=== PATIENT | male | born 1945 | race Caucasian/White ===

== ENCOUNTER → 2018-08-13 | Outpatient (CLI) | payer MEDICARE ==
--- NOTE | 2018-08-13 13:28 | CONS ---
CONSULTATION DATE OF SERVICE: 08/13/2018. This 72-year-old gentleman has been evaluated in the sleep center for possible obstructive sleep apnea-hypopnea syndrome. HISTORY OF PRESENT ILLNESS/SLEEP-WAKE EVALUATION: Patient had sleep study about 20 years ago, which was negative. Since that time according to the patient's family, he continued to snore and has episodes of stopped breathing during the sleep. His sleep schedule usually from 10 to 11 p.m. until 7 to 7:30 a.m. No problem with falling asleep. No TV in bedroom. He wakes up from sleep around 4 times to go to the bathroom. During the day, he sometimes feel sleepy. [place] Sleepiness Scale today is 12. During the previous visit to his physician, it was 12. PAST MEDICAL HISTORY: Positive for prostate CA treated with proton therapy, hypothyroidism. PAST SURGICAL HISTORY: Knee surgery, surgery for nasal septum deviation, tonsillectomy. MEDICATIONS: Aspirin, tamsulosin, levothyroxine. SOCIAL HISTORY: Negative for smoking. Alcohol consumption rarely. FAMILY HISTORY: Hypertension, stroke, arthritis, snoring, cancer, thyroid problems, restless legs. REVIEW OF SYSTEMS: Multiple awakenings from sleep, sometimes swelling of the legs, sleepiness. PHYSICAL EXAMINATION: During physical exam, a gentleman without distress. VITAL SIGNS: BP 134/75, HR 64, RR 16, height 5 feet and 10 inches, weight 207.5, temperature 97.7, oxygen saturation room air 99% HEENT: PERRLA, EOMI. Oropharynx moderately to extremely low position of soft palate. NECK: 16-1/2 inches in circumference. LUNGS: Clear to percussion and to auscultation. Good air exchange. No wheezing or rhonchi. HEART: S1, S2 regular. No murmurs, gallops, or rubs. ABDOMEN: Soft and nontender. Bowel sounds are present. No organomegaly appreciated. EXTREMITIES: Up to 1+ ankle edema. KNOCK UP ASSEMBLER: Awake, alert, and oriented X3. Cranial nerves 2 to 7 intact. There is no fasciculation or atrophy. noted. No focal deficits observed. IMPRESSION: 1. Snoring, witnessed episodes of stopped breathing during sleep, low position of soft palate, multiple awakenings from sleep with nocturia, excessive daytime sleepiness, obstructive sleep apnea-hypopnea syndrome. 2. Obesity. 3. History of prostate cancer treated by proton therapy. 4. Status post tonsillectomy. 5. Status post surgery for nasal septum deviation after nasal fracture. 6. Hypothyroidism. 7. Status post knee surgery. PLAN: 1. Polysomnography for evaluation of patient's breathing during sleep. 2. CPAP/BiPAP titration if sleep study confirms obstructive sleep apnea-hypopnea syndrome. 3. Preferable position during sleep on the side. 4. No driving if patient feels any sleepiness. 5. I will see patient for follow up visit to explain results of testing and following plan. Thank you very much for referring this patient for consultation. Sincerely, Sohan Morgan MD, PhD, FAASM Diplomat of [employer] Specialties Spanish Board of Internal Medicine Development Technical Lead of [facility] [place] MMODL / IJN: [id number] /
== END ==
LOC: SLEEP 11:30
PROVIDERS: ATTEND Internal Medicine
DX: G47.33 Obstructive sleep apnea (adult) (pediatric) (principal); E66.9 Obesity, unspecified; E03.9 Hypothyroidism, unspecified; Z85.46 Personal history of malignant neoplasm of prostate; Z90.89 Acquired absence of other organs; Z98.890 Other specified postprocedural states; Z79.82 Long term (current) use of aspirin; Z79.899 Other long term (current) drug therapy
CPT/HCPCS: 99211

== ENCOUNTER → 2018-08-20 | Outpatient (CLI) | payer MEDICARE ==
[2018-08-20 14:39] LABS: Calcium 9.4 mg/dL (8.4-10.2); Potassium 4.4 mmol/L (3.5-5.1)
[2018-08-20 14:54] LABS: T4, Free (Free Thyroxine) 1.02 ng/dL (0.78-2.19)
[2018-08-20 15:07] LABS: Prostate Specific Antigen 0.61 ng/mL (0.00-4.00)
== END | disposition home or self-care (01) ==
LOC: LABWHC1 12:43
PROVIDERS: ATTEND Internal Medicine
DX: C61 Malignant neoplasm of prostate (principal); E06.3 Autoimmune thyroiditis; E55.9 Vitamin D deficiency, unspecified
CPT/HCPCS: 36415; 80048; 82306; 84153; 84403; 84439; 84443

== ENCOUNTER → 2019-05-20 | Outpatient (CLI) | payer MEDICARE ==
--- NOTE | 2019-05-20 12:21 | SFUN ---
SLEEP CENTER FOLLOW UP NOTE DATE OF SERVICE: 05/20/2019 A 73-year-old gentleman has been followed in sleep center for treatment of obstructive sleep apnea-hypopnea syndrome and that is actually his first visit after he received CPAP unit. I discussed results of sleep studies with the patient in detail. Diagnostic sleep study showed severe sleep apnea, then he had CPAP titration and subsequently received CPAP unit. The patient is able to use CPAP equipment every night and sometimes he experiencing dryness in his mouth using a chinstrap. [place] Sleepiness Scale today is 4, which is normal. I checked his CPAP unit. Usage is 28 out of 30 nights and 22 out of 30 nights for more than 4 hours with average usage 5.4 hours. Range of the pressure 8 to 12 after medical regimen and average pressure in the machine is 11.7, which is close to maximal level. Leak is 25 L/minute. Apnea-hypopnea index reading for the last month 6.1; for the last 3 months, 6.0; for the last 6 months, 6.6. MEDICATIONS: Tamsulosin, levothyroxine, aspirin. PHYSICAL EXAMINATION: During physical examination, patient in no distress. VITAL SIGNS: BP 119/64, HR 50, RR 16, weight 203, temp 97.5, oxygen saturation at room air 99%. HEENT: PERRLA, EOMI. Oropharynx extremely low position of soft palate. Mallampati 4, NECK: Supple, no JVD. Thyroid is not palpable. LUNGS: Clear to percussion and to auscultation. Good air exchange. No wheezing or rhonchi. HEART: S1, S2 regular. No murmurs, gallops, or rubs. ABDOMEN: Soft and nontender. Bowel sounds are present. No organomegaly appreciated. EXTREMITIES: No clubbing or cyanosis. INSTRUCTIONAL AIDE: Awake, alert, and oriented X3. Cranial nerves 2 to 7 intact. There is no fasciculation or atrophy. noted. No focal deficits observed. IMPRESSION: 1. Severe obstructive sleep apnea-hypopnea syndrome. The patient demonstrated good compliance with treatment benefitting from treatment. 2. Severe periodic limb movements have been documented. 3. History of prostate carcinoma, status post proton therapy. 4. Status post tonsillectomy. 5. Status post surgery for nasal septum deviation. 6. Hypothyroidism. 7. Status post right knee surgery. PLAN: 1. The patient will continue to use CPAP equipment every night for the whole night. 2. I will increase maximal pressure on 1 cm of water to 13. 3. Sleep hygiene with regular time in bed for at least 8 hours. 4. Precautions related to driving. No driving if feel any sleepiness. 5. I will explain patient how to adjust humidity in his CPAP unit. Thank you very much for allowing me to participate in management of your patient. Sincerely, Sohan Morgan MD, PhD, FAASM Diplomat of [employer] Board [employer] Specialties [place] Board of Internal Medicine Machinist Instructor of [facility] [place] MMODL / IJN: [id number] /
== END | disposition home or self-care (01) ==
LOC: SLEEP 10:29
PROVIDERS: ATTEND Internal Medicine
DX: G47.33 Obstructive sleep apnea (adult) (pediatric) (principal); G47.61 Periodic limb movement disorder; E03.9 Hypothyroidism, unspecified; Z85.46 Personal history of malignant neoplasm of prostate; Z99.89 Dependence on other enabling machines and devices; Z90.09 Acquired absence of other part of head and neck; Z98.890 Other specified postprocedural states

== ENCOUNTER → 2019-06-21 | Outpatient (CLI) | payer MEDICARE | END | disposition home or self-care (01) | LOC: LABWHC1 08:16 | PROVIDERS: ATTEND Radiology Radiation Oncology | DX: C61 Malignant neoplasm of prostate (principal) | CPT/HCPCS: 36415; 84153 ==

== ENCOUNTER → 2019-09-18 | Outpatient (CLI) | payer MEDICARE | END | disposition home or self-care (01) | LOC: LABWHC1 11:11 | PROVIDERS: ATTEND Internal Medicine | DX: E55.9 Vitamin D deficiency, unspecified (principal); E06.3 Autoimmune thyroiditis | CPT/HCPCS: 36415; 82306; 84439; 84443 ==

== ENCOUNTER → 2021-07-05 | Outpatient (CLI) | payer MEDICARE ==
--- NOTE | 2021-07-05 11:17 | SFUN ---
SLEEP CENTER FOLLOW UP NOTE DATE OF SERVICE: 07/05/2021 This 75-year-old gentleman has been followed in Sleep Center for treatment of obstructive sleep apnea-hypopnea syndrome. Previous visit was in 2019. The patient did not come for a follow-up visit after that because of the situation with Covid, and he was also [place] of [place]. He continues to use his equipment every night. He changed his mask to DreamWear [id number] nasal mask, and he likes this mask, feels comfortable with that. During previous visit, because his apnea-hypopnea index was more than 6, I changed the pressure in his machine and slightly increased it. [place] Sleepiness Scale today is 3. I checked his CPAP unit. Range of the pressure is 8-13, average pressure 12.1, usage 29/30 nights for more than 4 hours, average 6.1 hours per night. Leak is slightly increased at 36 L/minute. Apnea-hypopnea index is 4.2, which is in normal range. MEDICATIONS: Levothyroxine 75 mcg once a day. PHYSICAL EXAMINATION: GENERAL: Pleasant patient in no distress. VITAL SIGNS: BP 143/77, HR 52, RR 15, height 5 feet 10 inches, weight 195, body mass index 27.9, temperature 96.8, oxygen saturation at room air 99%. HEENT: PERRLA, EOMI, evaluation of oropharynx showed tongue protrudes midline. Extremely low position of soft palate, Mallampati IV. NECK: Supple, no JVD. Thyroid is not palpable. LUNGS: Clear to percussion and to auscultation. Good air exchange. No wheezing or rhonchi. HEART: S1, S2 regular. No murmurs, gallops, or rubs. ABDOMEN: Soft and nontender. Bowel sounds are present. No organomegaly appreciated. EXTREMITIES: No clubbing or cyanosis. MARKETING DATABASE CONSULTANT: Awake, alert, and oriented X3. Cranial nerves 2 to 7 intact. There is no fasciculation or atrophy. noted. No focal deficits observed. IMPRESSION: 1. Severe obstructive sleep apnea-hypopnea syndrome. Normal apnea-hypopnea index after pressure was increased during the previous visit. The patient demonstrated great compliance with treatment, benefitting from treatment. 2. History of severe periodic limb movements. No complaints of limb movements at the present time. 3. History of prostate carcinoma, status post proton therapy. 4. Status post tonsillectomy. 5. Status post surgery for nasal septum deviation. 6. Hypothyroidism. 7. Status post right knee surgery. PLAN: 1. Patient will continue to use PAP equipment every night for the whole night. 2. Sleep hygiene with regular time in bed for at least 7-1/2 to 8 hours. 3. Precautions related to driving. No driving if feeling sleepiness. 4. I will maintain all necessary prescription for PAP supplies including mask, tube, filters. 5. Watching weight. 6. Follow-up visit in 6 months or earlier if patient has any problems. Thank you very much for allowing me to participate in the management of your patient. Sincerely, Sohan Morgan MD, PhD, FAASM Diplomat of [employer] Board [employer] Specialties Sleep Medicine Board of [employer] Board of Internal Medicine Data Management Engineer of [facility] [place] MMABELARDO / CONCEPCION: [id number] /
== END ==
LOC: SLEEP 10:11
PROVIDERS: ATTEND Internal Medicine
DX: G47.33 Obstructive sleep apnea (adult) (pediatric) (principal); Z85.46 Personal history of malignant neoplasm of prostate; Z90.89 Acquired absence of other organs; E03.9 Hypothyroidism, unspecified; Z47.1 Aftercare following joint replacement surgery

== ENCOUNTER → 2022-01-03 | Outpatient (CLI) | payer MEDICARE ==
--- NOTE | 2022-01-03 17:32 | SFUN ---
SLEEP CENTER FOLLOW UP NOTE TELEHEALTH APPOINTMENT: DATE OF SERVICE: 01/03/2022 This 76-year-old gentleman has been followed in Sleep Center for treatment of obstructive sleep apnea-hypopnea syndrome. Currently the patient is in another state; that is why this appointment was done as a telehealth appointment. The patient continues to use his CPAP equipment every night for the whole night. No snoring with the machine. Getting his supplies on time. He wants to try possibly a full-face mask instead of just a nasal mask. I checked the reading from his CPAP unit. The patient is using it 100% of nights and 22/30 nights for more than 4 hours, average usage 5 hours 9 minutes. Range of the pressure is 8 to 13 with 95% of the pressure 11.5 cm of water. Leak on average is 33.9, which is slightly increased. Apnea-hypopnea index is 1.5, which is absolutely perfect. Patient is sometimes using a chinstrap. MEDICATIONS: Levothyroxine 75 mcg once a day. IMPRESSION: 1. Severe obstructive sleep apnea-hypopnea syndrome. Patient demonstrated great compliance with treatment. Normal respiration on CPAP. 2. History of severe periodic limb movements. No significant complaints about leg movements at the present time. 3. History of prostate carcinoma, status post proton therapy. 4. Status post tonsillectomy. 5. Hypothyroidism. 6. Status post surgery for nasal septum deviation. 7. Status post right knee surgery. PLAN: 1. Prescription for chinstrap and for mask of choice, full-face mask, as is the patient's preference now. 2. Patient will continue to use PAP equipment every night for the whole night. 3. Sleep hygiene with regular time in bed for at least 7-1/2 to 8 hours. 4. Precautions related to driving. No driving if feeling sleepiness. 5. I will maintain all necessary prescription for PAP supplies including mask, tube, filters. 6. Watching weight. 7. Follow-up visit in 6 months or earlier if patient has any problems. Sincerely, Sohan Morgan MD, PhD, FAASM Diplomat of [employer] Board [employer] Specialties Sleep Medicine Board of [place] Board of Internal Medicine Break Off Worker of [facility] [place] MMODL / IJN: [id number] /
== END | disposition home or self-care (01) ==
LOC: SLEEP 17:11
PROVIDERS: ATTEND Internal Medicine
DX: G47.33 Obstructive sleep apnea (adult) (pediatric) (principal); E03.9 Hypothyroidism, unspecified; Z85.46 Personal history of malignant neoplasm of prostate; Z90.49 Acquired absence of other specified parts of digestive tract; Z98.890 Other specified postprocedural states

== ENCOUNTER → 2022-07-18 | Outpatient (CLI) | payer MEDICARE ==
--- NOTE | 2022-07-18 11:04 | P.PN ---
Subjective DATE: 07/18/2022 FOLLOW UP VISIT. Patient with obstructive sleep apnea hypopnea syndrome return to sleep center for follow-up visit. Information from previous visit have been reviewed. Patient is using PAP equipment every night for the whole night, getting PAP supplies in time. The patient sometimes feels dryness in his mouth. She is using nasal pillow mask, but possibly sometimes opening his mouth. [place] sleepiness scale is 4. I checked information from PAP unit. PAP unit pressure 8-13 cm H2O. Usage is 90 % for more then 4 hours, average 6 hours per night. Leak is 36 l/m, which is in increased range. Apnea Hypopnea Index is 2.3, which is normal. MEDICATIONS:1. Levothyroxine 75 g once a day During physical exam: GENERAL: A pleasant patient without any distress. VITAL SIGNS: BP 133/75, HR 48, RR 16, weight 189, height 5 foot 10 inches, body mass index 26.9, temperature 97.9, oxygen saturation at room air 97 % . HEENT: PERRLA, EOMI.low position of soft palate. NECK: Supple. No JVD. LUNGS: Clear to percussion and to auscultation. Good air exchange. No wheezing or rhonchi. HEART: S1, S2 regular. ABDOMEN: Soft and nontender.[] EXTREMITIES: No clubbing or cyanosis. BUILDING CONSTRUCTION SUPERINTENDENT: Awake, alert, and oriented x3. No focal deficit. Impressions: 1. Obstructive sleep apnea-hypopnea syndrome. Patient demonstrated great compliance with treatment, benefiting from treatment. He probably open his mouth while using nasal pillow mask. 2. Hypothyroidism. 3. History of severe periodic limb movements no complaints of leg movements at night. 4. History of prostate CA status post proton therapy. 5. Status post tonsillectomy. 6. Status post surgery for nasal septum deviation. 7. Status post right knee surgery. Plan: 1. Continue using PAP equipment every night for the whole night. I teach patient how to adjust level of humidity in his CPAP unit. 2. To change air filter at least 1-2 times per month. 3. PAP unit should stay lower then position of the head. 4. Advised patient to remove all remaining water from humidifier canister daily and make it dry after each usage. Refill canister with fresh distilled water before each usage. 5. Sleep hygiene with regular time in bed for at least 8 hours. 6. Precautions related to driving. No driving if feel any sleepiness. 7. I will maintain prescription for PAP supplies including mask, tube, filters. 8. Follow up visit in 6 months or earlier if patient has any problems. 9. Watching weight. Thank you very much for allowing me to participate in the management of your patient. Sohan Morgan MD, PhD, FAASM. Diplomat of [employer] Board of Sleep Medicine, Sleep Medicine Board by [employer] Board of Internal Medicine Concentrator Operator of [facility] [place]
== END | disposition home or self-care (01) ==
LOC: SLEEP 10:10
PROVIDERS: ATTEND Internal Medicine
DX: G47.33 Obstructive sleep apnea (adult) (pediatric) (principal); E03.9 Hypothyroidism, unspecified; Z85.46 Personal history of malignant neoplasm of prostate; Z98.890 Other specified postprocedural states
CPT/HCPCS: 99212

== ENCOUNTER 2023-05-21 06:27 | Day surgery (SDC) | payer MEDICARE ==
[2023-05-16 11:33] VITALS: BMI 27.8
[~2023-05-21 06:27] MED LIST: LACTATED RINGERS 1,000 ML IV SCH; LIDOCAINE 1% (10MG/ML) FOR IV START INTRADERMA PRN
[2023-05-21 06:41] VITALS: RESP 16; TEMP 97
[2023-05-21] MEDS ORDERED: LIDOCAINE 2% INJ 20 MG/ML (2 ML VIAL) ONE (07:28)
[2023-05-21] MEDS ORDERED: PROPOFOL 10 MG/ML 20 ML VIAL IV ONE (07:28)
--- NOTE | 2023-05-21 08:28 | P.PCN ---
Date of Procedure: 05/21/23 Procedure(s) Performed: Brief history: Patient is a pleasant 77-year-old white male scheduled for an elective upper endoscopy as well as colonoscopy as a part of evaluation of Iron deficiency anemia. Procedure performed: Esophagogastroduodenoscopy with biopsy Colonoscopy with argon plasma coagulation Preoperative diagnosis: Iron deficiency anemia Anest[place]: [facility] Procedure: After informed consent was obtained from the patient was brought into the endoscopy unit and IV sedation was administered by anesthesia under continuous monitoring. Initially upper endoscopy was done. The Olympus GF 160 video endoscope was inserted inserted into the mouth and esophagus intubated without any difficulty and was gradually advanced into the stomach and duodenum and carefully examined. The bulb and second part of the duodenum appeared normal. Biopsies from the duodenum to rule out celiac disease. The scope was then withdrawn into the stomach adequately insufflated with air and upon careful examination the antrum had mild antral gastritis and biopsies were done from this area. Mucosa of the body, cardia and fundus appeared normal. The scope was then withdrawn into the esophagus. The GE junction was located at 40 cm to the incisors. It appeared regular with no erythema erosions or ulcerations. Rest of the esophagus appeared normal. Patient tolerated the procedure well. At this time the patient continued to remain sedation. Initial digital rectal examination was normal. Olympus CF 160 video colonoscope was then inserted into the rectum and gradually advanced to the cecum without any difficulty. Careful examination was performed as the scope was gradually being withdrawn. The prep was excellent. The cecum, ascending colon, transverse colon, descending colon, sigmoid colon and rectum appeared normal. In the distal rectum there were scattered telangiectasias noted consistent with radiation proctitis and argon plasma coag ablation was performed with good hemostasis Retroflexion was performed in the rectum and no lesions were noted. Patient tolerated the procedure well. Impression: 1. Upper endoscopy revealed mild antral gastritis but no evidence of esophagitis or peptic ulcer disease. 2. 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 Recommendations: Findings of this examination were discussed with the patient as well his family. He advised to follow with the biopsy results. Continue with iron supplements and monitor CBC periodically.
[2023-05-21 09:04] VITALS: BP 132/75; PULSE 43
== END 2023-05-21 09:06 | disposition home or self-care (01) ==
LOC: ORWHC2ENDO 06:27
PROVIDERS: ATTEND Internal Medicine Gastroenterology
DX: K62.7 Radiation proctitis (principal); K29.50 Unspecified chronic gastritis without bleeding; K31.89 Other diseases of stomach and duodenum; D50.9 Iron deficiency anemia, unspecified
CPT/HCPCS: 88305; 45388; 43239; J2704; J2001

== ENCOUNTER → 2023-07-17 | Outpatient (CLI) | payer MEDICARE ==
--- NOTE | 2023-07-17 11:31 | P.PN ---
Subjective DATE: 07/17/2023 FOLLOW UP VISIT. Patient with obstructive sleep apnea hypopnea syndrome return to sleep center for follow-up visit. Information from previous visit have been reviewed. Patient is using PAP equipment every night for the whole night, getting PAP supplies in time. The patient does not have significant problems with the mask, PAP unit and humidification. [place] sleepiness scale is 6, which is normal. I checked information from PAP unit. PAP unit pressure 8-13, average 11.7 cm H2O. Usage is 100 % for more then 4 hours, average 6.25 hours per night. Leak is increased to 40.9 l/m. Apnea Hypopnea Index is 2.0, which is normal. MEDICATIONS:1. Levothyroxine 75 g once a day 2. Atorvastatin 20 mg once a day During physical exam: GENERAL: A pleasant patient without any distress. VITAL SIGNS: BP 138/72, HR 51, RR 16 , weight 198.4, temperature 97.6, oxygen saturation at room air 98 % . HEENT: PERRLA, EOMI.low position of soft palate, Mallapati 3 . NECK: Supple. No JVD. LUNGS: Clear to percussion and to auscultation. Good air exchange. No wheezing or rhonchi. HEART: S1, S2 regular. ABDOMEN: Soft and nontender.[] EXTREMITIES: No clubbing or cyanosis. DYE AND CHEMICAL COORDINATOR: Awake, alert, and oriented x3. No focal deficit. Impressions: 1. Obstructive sleep apnea-hypopnea syndrome. Patient demonstrated great compliance with treatment, benefiting from treatment. 2. History of periodic limb movements by results of sleep study, no clinical symptoms at the present time. 3. Hypothyroidism. 4. History of prostate CA, status post proton therapy. 5. Status post tonsillectomy. 6. Status post right knee surgery. 7. Status post surgical treatment for nasal septum deviation. Plan: 1. Continue using PAP equipment every night for the whole night. 2. To change air filter at least 1-2 times per month. 3. PAP unit should stay lower then position of the head. 4. Advised patient to remove all remaining water from humidifier canister daily and make it dry after each usage. Refill canister with fresh distilled water before each usage. 5. Sleep hygiene with regular time in bed for at least 8 hours. 6. Precautions related to driving. No driving if feel any sleepiness. 7. I will maintain prescription for PAP supplies including mask, tube, filters. 8. Watching weight. 9. Follow up visit in 6 months or earlier if patient has any problems. Thank you very much for allowing me to participate in the management of your patient. Sohan Morgan MD, PhD, FAASM. Diplomat of [place] Board [employer] Sleep Medicine, Sleep Medicine Board by [place] Board of Internal Medicine Cement Truck Loader of [facility] [place]
== END ==
LOC: 3 N SLEEP 09:57
PROVIDERS: ATTEND Internal Medicine
DX: G47.33 Obstructive sleep apnea (adult) (pediatric) (principal); E03.9 Hypothyroidism, unspecified; Z79.890 Hormone replacement therapy; Z85.46 Personal history of malignant neoplasm of prostate; Z98.890 Other specified postprocedural states; Z99.89 Dependence on other enabling machines and devices
CPT/HCPCS: 99212

== ENCOUNTER → 2024-05-27 | Outpatient (CLI) | payer MEDICARE ==
[2024-05-27 10:35] VITALS: BP 128/77; PULSE 55; RESP 16; TEMP 97.7
--- NOTE | 2024-05-27 10:50 | P.PROGSL ---
Subjective DATE: 05/27/2024 FOLLOW UP VISIT. Patient with obstructive sleep apnea hypopnea syndrome return to sleep center for follow-up visit. Information from previous visit have been reviewed. Patient is using PAP equipment every night for the whole night, getting PAP supplies in time. The patient does not have significant problems with the mask, PAP unit and humidification. Patient complained that he feels pressure is too high when he wakes up in the middle of the night. [place] sleepiness scale is 2, which is normal. I checked information from PAP unit. PAP unit pressure 8-13, average 10.3 cm H2O. Usage is 100% for more then 4 hours, average 4.7 hours per night. Leak is significantly increased to 40 l/m. Apnea Hypopnea Index is 1.6, which is normal. MEDICATIONS have been reviewed, please see below. During physical exam: GENERAL: A pleasant patient without any distress. VITAL SIGNS: Please see below, weight is 202 lbs. HEENT: PERRLA, EOMI.low position of soft palate, Mallapati 3 . NECK: Supple. No JVD. LUNGS: Clear to percussion and to auscultation. Good air exchange. No wheezing or rhonchi. HEART: S1, S2 regular. ABDOMEN: Soft and nontender.[] EXTREMITIES: No clubbing or cyanosis. COMPUTER SYSTEMS INFORMATION DIRECTOR: Awake, alert, and oriented x3. No focal deficit. Impressions: 1. Obstructive sleep apnea-hypopnea syndrome. Patient demonstrated great compliance with treatment, benefiting from treatment. 2. Periodic limb movements by results of sleep study, no complaints at the present time. 3. Hypothyroidism. 4. History of prostate cancer, status post proton therapy. 5. Status post tonsillectomy. 6. Status post surgical treatment of nasal septal deviation. 7. Status post right knee surgery. I decreased range of the pressure in CPAP unit to 8-10.4 cm of water. Plan: 1. Continue using PAP equipment every night for the whole night. 2. Sleep hygiene with regular time in bed for at least 7.5-8 hours 3. PAP unit should stay lower then position of the head. 4. Advised patient to remove all remaining water from humidifier canister daily and make it dry after each usage. Refill canister with fresh distilled water before each usage. 5. Watching weight. 6. Precautions related to driving. No driving if feel any sleepiness. 7. I will maintain prescription for PAP supplies including mask, tube, filters. 8. Follow up visit in 6 months or earlier if patient has any problems. Thank you very much for allowing me to participate in the management of your patient. Sohan Morgan MD, PhD, FAASM. Diplomat of [employer] Board of Sleep Medicine, Sleep Medicine Board by [employer] Board of Internal Medicine Corn Detasseler Machine Operator of [facility] [place] Objective - Vital Signs Vital Signs: Vital Signs Temp 97.7 F 05/27/24 10:30 Pulse 55 L 05/27/24 10:30 Resp 16 05/27/24 10:30 BP 128/77 05/27/24 10:30 Pulse Ox 99 05/27/24 10:30 FiO2 Intake & Output 05/26/24 05/27/24 05/27/24 18:59 06:59 18:59 Weight 91.626 kg Home Medications: Home Medications Medication Instructions Recorded Confirmed Type Levothyroxine Sodium [Synthroid] 75 mcg PO QAM 05/19/16 05/27/24 History Cholecalciferol [Vitamin D3] 4,000 unit PO DAILY 10/22/17 05/27/24 History Fish Oil/Dha/Epa [Fish Oil 1,200 1 each PO DAILY 10/22/17 05/27/24 History mg Fish Oil] Kelp 1 each PO DAILY 10/22/17 05/27/24 History Multivitamins, Thera [Multivitamin 1 tab PO DAILY 10/22/17 05/27/24 History (formulary)] Atorvastatin [Lipitor] 20 mg PO DAILY 05/27/24 05/27/24 History Omeprazole 20 mg PO 05/27/24 History
== END ==
LOC: 3 N SLEEP 10:12
PROVIDERS: ATTEND Internal Medicine
DX: G47.33 Obstructive sleep apnea (adult) (pediatric) (principal); G47.61 Periodic limb movement disorder; E03.9 Hypothyroidism, unspecified; Z98.890 Other specified postprocedural states; Z90.89 Acquired absence of other organs; Z99.89 Dependence on other enabling machines and devices; Z85.46 Personal history of malignant neoplasm of prostate; Z92.3 Personal history of irradiation; Z79.890 Hormone replacement therapy
CPT/HCPCS: 99212

== ENCOUNTER 2025-06-07 15:11 | Emergency (ER) | payer MEDICARE ==
--- NOTE | 2025-06-07 15:52 | ED ---
Altered Mental Status HPI - General Chief Complaint: Altered Mental Status Stated Complaint: AMS Source: EMS Mode of arrival: EMS Limitations: no limitations - History of Present Illness Initial Comments: This patient is an 79-year-old man who arrives to have evaluation for disor ientation and problems with memory. 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 While he was gone he had to call his twice because he could not remember which restaurant he was going to. He also had forgotten his age. The patient does state that he is feeling better now but the patient's confirms that he was not remembering many details of his history. The patient did not have any sensory change. No trouble with speech, focal weakness or numbness. MD Complaint: confusion -: hour(s) Severity: moderate Associated Symptoms: denies other symptoms - Related Data Home Medications Medication Instructions Recorded Confirmed Levothyroxine Sodium [Synthroid] 75 mcg PO QAM 05/19/16 05/27/24 Cholecalciferol [Vitamin D3] 4,000 unit PO DAILY 10/22/17 05/27/24 Fish Oil/Dha/Epa [Fish Oil 1,200 1 each PO DAILY 10/22/17 05/27/24 mg Fish Oil] Kelp 1 each PO DAILY 10/22/17 05/27/24 Multivitamins, Thera [Multivitamin 1 tab PO DAILY 10/22/17 05/27/24 (formulary)] Atorvastatin [Lipitor] 20 mg PO DAILY 05/27/24 05/27/24 Omeprazole 20 mg PO 05/27/24 Allergies Allergy/AdvReac Type Severity Reaction Status Date / Time No Known Allergies Allergy Verified 05/21/23 06:42 Review of Systems ROS Statement: Those systems with pertinent positive or pertinent negative responses have been documented in the HPI. ROS Other: All systems not noted in ROS Statement are negative. Constitutional: Denies: fever, chills, weakness Eyes: Denies: vision change ENT: Denies: hearing loss Respiratory: Denies: cough, dyspnea Cardiovascular: Denies: chest pain, palpitations, edema, syncope Gastrointestinal: Reports: nausea. Denies: abdominal pain, vomiting, diarrhea Genitourinary: Denies: dysuria, hematuria Musculoskeletal: Denies: back pain Skin: Denies: rash Neurological: Reports: confusion. Denies: headache, weakness, numbness, abnormal gait Past Medical History Past Medical History: Cancer, Thyroid Disorder Additional Past Medical History / Comment(s): prostate CA-Dx Oct 2017-Following with [facility] in [place], Hernia repair x2 History of Any Multi-Drug Resistant Organisms: None Reported Past Surgical History: Orthopedic Surgery, Tonsillectomy Additional Past Surgical History / Comment(s): right knee, deviated septum repair,hernia repair x2 Past Anesthesia/Blood Transfusion Reactions: No Reported Reaction Additional Past Anesthesia/Blood Transfusion Reaction / Comment(s): No blood transfusion Past Psychological History: No Psychological Hx Reported Smoking Status: Never smoker Past Alcohol Use History: Occasional Past Drug Use History: None Reported - Past Family History Mother Family Medical History: Cancer Additional Family Medical History / Comment(s): colon General Exam Limitations: no limitations General appearance: alert, in no apparent distress Head exam: Present: atraumatic, normocephalic Eye exam: Present: normal appearance. Absent: scleral icterus, conjunctival injection ENT exam: Present: normal oropharynx Neck exam: Present: normal inspection, full ROM Respiratory exam: Present: normal lung sounds bilaterally. Absent: respiratory distress, wheezes, rales, rhonchi, stridor, accessory muscle use Cardiovascular Exam: Present: regular rate, normal rhythm, normal heart sounds. Absent: systolic murmur, diastolic murmur, rubs, gallop GI/Abdominal exam: Present: soft. Absent: distended, tenderness, guarding, rebound, rigid Extremities exam: Present: normal inspection, normal capillary refill. Absent: pedal edema, calf tenderness Back exam: Present: normal inspection Neurological exam: Present: alert, oriented X3, CN II-XII intact. Absent: motor sensory deficit Skin exam: Present: warm, dry, intact, normal color. Absent: rash Course Vital Signs 06/07/25 06/07/25 06/07/25 15:19 15:46 17:19 Temperature 98.1 F 98.4 F Pulse Rate 52 L 50 L 50 L Respiratory 19 19 17 Rate Blood Pressure 156/70 149/71 158/76 O2 Sat by Pulse 98 99 99 Oximetry Medical Decision Making - Medical Decision Making The patient had chest x-ray, 2 view, that I interpreted as negative for acute infiltrate, pneumothorax, congestive heart failure. The patient had CT scan of the brain, that I interpreted as negative for acute intracranial hemorrhage, mass effect or midline shift. Was pt. sent in by a medical professional or institution (SHANIKA Dang, MICROBIOLOGY PROFESSOR, urgent care, hospital, or intermediate...) When possible be specific @ -[No] Did you speak to anyone other than the patient for history (EMS, parent, family, police, friend...)? What history was obtained from this source @ -[The patient's family contributed significant amount of history Did you review nursing and triage notes (agree or disagree)? Why? @ -[I reviewed and agree with nursing and triage notes] Were old charts reviewed (outside hosp., previous admission, EMS record, old EKG, old radiological studies, urgent care reports/EKG's, intermediate records)? Report findings @ -[No old charts were reviewed] Differential Diagnosis (chest pain, altered mental status, abdominal pain women, abdominal pain men, vaginal bleeding, weakness, fever, dyspnea, syncope, headache, dizziness, GI bleed, back pain, seizure, CVA, palpatations, mental health, musculoskeletal)? @ -[Differential Altered Mental Status: Hypoglycemia, DKA, hypercapnia, ETOH, overdose, CO poisoning, trauma, myxedema coma, HTN encephalopathy, infection, encephalitis, psychosis, intercranial hemorrhage, hepatic encephalopathy, meningitis, CVA, this is not meant to be an all-inclusive list EKG interpreted by me (3pts min.). @ -[I interpreted as above] X-rays interpreted by me (1pt min.). @ -[I interpreted as above CT interpreted by me (1pt min.). @ -[I interpreted as above U/S interpreted by me (1pt. min.). @ -[None done] What testing was considered but not performed or refused? (CT, X-rays, U/S, labs)? Why? @ -[None] What meds were considered but not given or refused? Why? @ -[None] Did you discuss the management of the patient with other professionals (professionals i.e. SHANIKA Dang, MICROBIOLOGY PROFESSOR, lab, RT, psych nurse, social service assistant, piano player, teacher, unemployment insurance hearing officer, case coordinator)? Give summary @ -[No] Was smoking cessation discussed for >3mins.? @ -[No] Was critical care preformed (if so, how long)? @ -[No] Were there social determinants of health that impacted care today? How? (Homelessness, low income, unemployed, alcoholism, drug addiction, transportation, low edu. Level, literacy, decrease access to med. care, usp, rehab)? @ -[No] Was there de-escalation of care discussed even if they declined (Discuss DNR or withdrawal of care, Hospice)? DNR status @ -[No] What co-morbidities impacted this encounter? (DM, HTN, Smoking, COPD, CAD, Cancer, CVA, ARF, Chemo, Hep., AIDS, mental health diagnosis, sleep apnea, morbid obesity)? @ -[None] Was patient admitted / discharged? Hospital course, mention meds given and route, prescriptions, significant lab abnormalities, going to OR and other pertinent info. @ -Patient is an 79-year-old man here to have evaluation of altered mental status. He is significantly improved since the onset of his symptoms. The history and physical exam are consistent with transient amnesia. His workup is unremarkable and at this point he would like to follow-up as outpatient. Patient stable to continue with neurology. Discussed appropriate further care and the return parameters Undiagnosed new problem with uncertain prognosis? @ -[No] Drug Therapy requiring intensive monitoring for toxicity (Heparin, Nitro, Insulin, Cardizem)? @ -[No] Were any procedures done? @ -[No] Diagnosis/symptom? @ -Transient amnesia Acute, or Chronic, or Acute on Chronic? @ -[Acute Uncomplicated (without systemic symptoms) or Complicated (systemic symptoms)? @ -[Uncomplicated Side effects of treatment? @ -[No] Exacerbation, Progression, or Severe Exacerbation? @ -[No] Poses a threat to life or bodily function? How? (Chest pain, [place], [place], pneumonia, PE, COPD, DKA, ARF, appy, cholecystitis, CVA, Diverticulitis, Homicidal, Suicidal, threat to staff... and all critical care pts) @ -[No] All treatments are based on ideal body weight as in ED triage - Lab Data Result diagrams: 06/07/25 15:49 06/07/25 15:49 Lab Results 06/07/25 06/07/25 06/07/25 Range/Units 15:49 15:49 15:49 WBC 6.97 (4.50-10.00) 10*3/uL RBC 4.44 (4.40-5.60) 10*6/uL Hgb 13.6 (13.0-17.0) g/dL Hct 40.1 (39.6-50.0) % MCV 90.3 (80.0-97.0) fL MCH 30.6 (27.0-32.0) pg MCHC 33.9 (32.0-37.0) g/dL Plt Count 141 (140-440) 10*3/uL MPV 10.3 (9.5-12.2) fL Immature Gran % (Auto) 0.3 % Neutrophils % 84.0 % Lymphocytes % 9.8 % Monocytes % 5.0 % Eosinophils % 0.3 % Basophils % 0.6 % Immature Gran # 0.02 (0.00-0.04) 10*3/uL Neutrophils # 5.86 (1.80-7.70) 10*3/uL Lymphocytes # 0.68 L (0.90-5.00) 10*3/uL Monocytes # 0.35 (0.20-1.00) 10*3/uL Eosinophils # 0.02 L (0.04-0.35) 10*3/uL Basophils # 0.04 (0.00-0.10) 10*3/uL PT 10.5 (10.0-12.5) sec INR 0.9 (<1.2) APTT 22.3 (22.0-30.0) sec Sodium 135 L (137-145) mmol/L Potassium 4.3 (3.5-5.1) mmol/L Chloride 102 (98-107) mmol/L Carbon Dioxide 26 (22-30) mmol/L Anion Gap 7 mmol/L BUN 23 H (9-20) mg/dL Creatinine 1.05 (0.66-1.25) mg/dL Est GFR (CKD-EPI)AfAm 77 (>60 ml/min/1.73 sqM) Est GFR (CKD-EPI)NonAf 67 (>60 ml/min/1.73 sqM) Glucose 136 H (74-99) mg/dL Calcium 9.3 (8.4-10.2) mg/dL Total Bilirubin 0.9 (0.2-1.3) mg/dL AST 38 (17-59) U/L ALT 23 (4-49) U/L Alkaline Phosphatase 58 (38-126) U/L Ammonia (<30) umol/L Troponin I (0.000-0.034) ng/mL Total Protein 7.5 (6.3-8.2) g/dL Albumin 4.6 (3.5-5.0) g/dL Urine Opiates Screen (NotDetected) Ur Oxycodone Screen (NotDetected) Urine Methadone Screen (NotDetected) Ur Barbiturates Screen (NotDetected) U Tricyclic Antidepress (NotDetected) Ur Phencyclidine Scrn (NotDetected) Ur Amphetamines Screen (NotDetected) U Methamphetamines Scrn (NotDetected) U Benzodiazepines Scrn (NotDetected) Urine Cocaine Screen (NotDetected) U Marijuana (THC) Screen (NotDetected) Serum Alcohol <10 mg/dL 06/07/25 06/07/25 06/07/25 Range/Units 15:49 15:49 16:47 WBC (4.50-10.00) 10*3/uL RBC (4.40-5.60) 10*6/uL Hgb (13.0-17.0) g/dL Hct (39.6-50.0) % MCV (80.0-97.0) fL MCH (27.0-32.0) pg MCHC (32.0-37.0) g/dL Plt Count (140-440) 10*3/uL MPV (9.5-12.2) fL Immature Gran % (Auto) % Neutrophils % % Lymphocytes % % Monocytes % % Eosinophils % % Basophils % % Immature Gran # (0.00-0.04) 10*3/uL Neutrophils # (1.80-7.70) 10*3/uL Lymphocytes # (0.90-5.00) 10*3/uL Monocytes # (0.20-1.00) 10*3/uL Eosinophils # (0.04-0.35) 10*3/uL Basophils # (0.00-0.10) 10*3/uL PT (10.0-12.5) sec INR (<1.2) APTT (22.0-30.0) sec Sodium (137-145) mmol/L Potassium (3.5-5.1) mmol/L Chloride (98-107) mmol/L Carbon Dioxide (22-30) mmol/L Anion Gap mmol/L BUN (9-20) mg/dL Creatinine (0.66-1.25) mg/dL Est GFR (CKD-EPI)AfAm (>60 ml/min/1.73 sqM) Est GFR (CKD-EPI)NonAf (>60 ml/min/1.73 sqM) Glucose (74-99) mg/dL Calcium (8.4-10.2) mg/dL Total Bilirubin (0.2-1.3) mg/dL AST (17-59) U/L ALT (4-49) U/L Alkaline Phosphatase (38-126) U/L Ammonia <9 (<30) umol/L Troponin I <0.012 (0.000-0.034) ng/mL Total Protein (6.3-8.2) g/dL Albumin (3.5-5.0) g/dL Urine Opiates Screen Not Detected (NotDetected) Ur Oxycodone Screen Not Detected (NotDetected) Urine Methadone Screen Not Detected (NotDetected) Ur Barbiturates Screen Not Detected (NotDetected) U Tricyclic Antidepress Not Detected (NotDetected) Ur Phencyclidine Scrn Not Detected (NotDetected) Ur Amphetamines Screen Not Detected (NotDetected) U Methamphetamines Scrn Not Detected (NotDetected) U Benzodiazepines Scrn Not Detected (NotDetected) Urine Cocaine Screen Not Detected (NotDetected) U Marijuana (THC) Screen Not Detected (NotDetected) Serum Alcohol mg/dL - EKG Data -: EKG Interpreted by Nm EKG shows normal: sinus rhythm, axis (Normal), intervals (Normal), QRS complexes (Possible incomplete right bundle branch block.), ST-T waves (Normal) Rate: bradycardia (Rate 53 bpm) Disposition Clinical Impression: Transient amnesia Disposition: HOME SELF-CARE Condition: Good Instructions (If sedation given, give patient instructions): Transient Global Amnesia (ED) Is patient prescribed a controlled substance at d/c from ED?: No Referrals: Nonstaff,Physician [Primary Care Provider] - 1-2 days Kenya Morales MD [REFERRING] - 1-2 days Marc Forbes DO [STAFF PHYSICIAN] - 1-2 days
[2025-06-07 15:57] LABS: Basophils # (A) 0.04 10*3/uL (0.00-0.10); Basophils % (A) 0.6 %; Eosinophils # (A) 0.02 10*3/uL (0.04-0.35); Eosinophils % (A) 0.3 %; HCT 40.1 % (39.6-50.0); HGB 13.6 g/dL (13.0-17.0); Lymphocytes # (A) 0.68 10*3/uL (0.90-5.00); Lymphocytes % (A) 9.8 %; MCH 30.6 pg (27.0-32.0); MCHC 33.9 g/dL (32.0-37.0); MCV 90.3 fL (80.0-97.0); Monocytes # (A) 0.35 10*3/uL (0.20-1.00); Monocytes % (A) 5.0 %; Neutrophils # (A) 5.86 10*3/uL (1.80-7.70); Neutrophils % (A) 84.0 %; Platelet Count 141 10*3/uL (140-440); RBC 4.44 10*6/uL (4.40-5.60); RDW 13.2 % (11.5-14.5); WBC 6.97 10*3/uL (4.50-10.00)
[2025-06-07 16:00] VITALS: PULSE 50
[2025-06-07 16:06] LABS: INR 0.9 (<1.2); Prothrombin Time 10.5 sec (10.0-12.5)
[2025-06-07 16:09] LABS: ALT 23 U/L (4-49); African American GFR (CKD) 77 (>60 ml/min/1.73 sqM); Albumin 4.6 g/dL (3.5-5.0); Anion Gap 7 mmol/L; Blood Urea Nitrogen 23 mg/dL (9-20); Calcium 9.3 mg/dL (8.4-10.2); Carbon Dioxide 26 mmol/L (22-30); Chloride 102 mmol/L (98-107); Glucose 136 mg/dL (74-99); Non-African American GFR(CKD) 67 (>60 ml/min/1.73 sqM); Sodium 135 mmol/L (137-145); Total Protein 7.5 g/dL (6.3-8.2)
[2025-06-07 16:10] LABS: AST 38 U/L (17-59); Alkaline Phosphatase 58 U/L (38-126); Potassium 4.3 mmol/L (3.5-5.1)
--- NOTE | 2025-06-07 16:10 | XR ---
EXAMINATION TYPE: XR chest 2V DATE OF EXAM: 06/07/2025 COMPARISON: NONE CLINICAL INDICATION: Male, 79 years old with history of altered mental status; , TECHNIQUE: XR chest 2V views of the chest. FINDINGS: The lungs are clear and there is no pneumothorax, pleural effusion, or focal pneumonia. Heart size normal and no overt failure. Osseous structures demonstrate hypertrophic and degenerative changes of the spine. AC joint arthropathy. IMPRESSION: 1. No acute process. [facility], , 06/07/2025 4:07 PM
[2025-06-07 16:16] LABS: Partial Thromboplastin Time 22.3 sec (22.0-30.0)
--- NOTE | 2025-06-07 16:23 | CT ---
EXAMINATION TYPE: CT brain wo con DATE OF EXAM: 06/07/2025 COMPARISON: None CLINICAL INDICATION: Male, 79 years old with history of Altered mental status; PHH, ams CT DLP: 1094 mGycm Automated exposure control for dose reduction was used. Findings: The ventricles, basal cisterns and sulci over the convexities are within normal limits and there is n o mass effect or shift of midline structures. No abnormal density is seen throughout the brain parenchyma and there is no acute intra or extra-axia l hemorrhage. The posterior fossa including the brainstem, fourth ventricle and cerebellar pontine angles appear no rmal. Intraorbital contents appear normal and symmetric. Visualized paranasal sinuses and mastoid air cells are well aerated. The calvarium is intact. IMPRESSION: No significant abnormality seen. There is no acute bleed or mass effect. [facility], Workstation: [id number], 06/07/2025 4:20 PM
[2025-06-07] MEDS: SODIUM CHLORIDE 0.9% 500 ML 500 ML IV ONE (16:34)
[2025-06-07 17:14] LABS: Barbiturate Screen,Urine Not Detected (NotDetected); Benzodiazepines Screen,Urine Not Detected (NotDetected); Opiate Screen,Urine Not Detected (NotDetected); Oxycodone Screen, Urine Not Detected (NotDetected); Phencyclidine Screen,Urine Not Detected (NotDetected); Tricyclic Antidepressant,Urine Not Detected (NotDetected); Urn Cannabinoid Scrn Not Detected (NotDetected)
[2025-06-07 17:31] VITALS: BP 158/76; RESP 17; TEMP 98.4
== END 2025-06-07 17:50 | disposition home or self-care (01) ==
LOC: EC 15:11
DX: R41.3 Other amnesia (principal)
CPT/HCPCS: 36415; 70450; 71046; 80053; 80306; 80320; 82140; 84484; 85025; 85610; 85730; 93005; 96360; 99285